=== PATIENT | male | born 1965 | race Caucasian/White ===

== ENCOUNTER 2016-09-04 09:18 | Day surgery (SDC) | payer BC ==
[~2016-09-04] VITALS: Ht 177.8 cm; Wt 104.0 kg
[2016-09-04] VITALS (11 sets, daily range): BP systolic 105–139; BP diastolic 59–79; PULSE 58–77; RESP 15–19; Ht 177.8 cm; Wt 104.0 kg
[~2016-09-04 09:18] MED LIST: CEFAZOLIN 1 GM INJ ONE; SEVOFLURANE 15 MIN ONE
[2016-09-04] MEDS ORDERED: SOD CHLORIDE 0.9% 1,000 ML IV SCH (09:30)
[2016-09-04] MEDS ORDERED: CEFAZOLIN 2 GM/50 ML (PMX) 50 ML IVPB ONE (09:30)
--- NOTE | 2016-09-04 10:11 | RADRPT ---
PROCEDURE: XR Chest AP portable CLINICAL INDICATION: Preop cholelithiasis TECHNIQUE: An AP portable radiograph of the chest was submitted. COMPARISON: None. FINDINGS: Support Hardware: None Cardiovascular: The cardiovascular silhouette appears unremarkable. Lung Hernandez: The lung hernandez appear clear with no nodule, alveolar infiltrate, or interstitial promi nence evident. Pleural Spaces: No pneumothorax or pleural effusion is identified. Osseous Structures: The osseous structures appear intact. Soft Tissues: The soft tissues appear unremarkable. IMPRESSION: Unremarkable portable chest. Physician Noemi Date Time Electronically viewed and signed by Physician Noemi on 09/04/2016 10:11 /
[2016-09-04] MEDS ORDERED: BUPIVACAINE 0.25% (MPF) 30 ML INJ ONE (11:03)
[2016-09-04] MEDS ORDERED: LIDOCAINE 2% (SDV) 5 ML INJ ONE (11:43)
[2016-09-04] MEDS ORDERED: PROPOFOL 20 ML ONE (11:43)
[2016-09-04] MEDS ORDERED: ROCURONIUM 50 MG INJ ONE (11:43)
[2016-09-04] MEDS ORDERED: MIDAZOLAM 1 MG/ML 2 ML INJ ONE (11:43)
[2016-09-04] MEDS ORDERED: SUCCINYLCHOLINE CHLORIDE 100 MG/5 ML SYG IV ONE (11:43)
[2016-09-04] MEDS ORDERED: FENTAnyl 50 MCG/ML VIAL ONE (11:44)
[2016-09-04] MEDS ORDERED: BUPIVACAINE 0.25% (MPF) 30 ML INJ INJ ONE (11:55)
[2016-09-04] MEDS ORDERED: FAMOTIDINE 20 MG INJ ONE (11:58)
[2016-09-04] MEDS ORDERED: ONDANSETRON 4 MG INJ ONE (11:58)
[2016-09-04] MEDS ORDERED: DEXAMETHASONE 4 MG/ML 1 ML INJ ONE (11:58)
[2016-09-04] MEDS ORDERED: EPHEDrine SULFATE 50 MG/5 ML SYG ONE (12:00)
[2016-09-04] MEDS ORDERED: GLYCOPYRROLATE 0.4 MG INJ ONE (12:01)
[2016-09-04] MEDS ORDERED: NEOSTIGMINE 3 MG/3 ML SYRINGE ONE (12:01)
[2016-09-04] MEDS ORDERED: HYDROmorphONE 2 MG/ML SYG ONE (12:02)
[2016-09-04] MEDS ORDERED: ONDANSETRON 4 MG INJ IV PRN (12:30)
[2016-09-04] MEDS ORDERED: HYDROmorphONE (0.2 MG/ML) 10ML SYG IV PRN ×3 (12:30)
[2016-09-04] MEDS ORDERED: FENTAnyl 50 MCG/ML VIAL IV PRN ×3 (12:30)
[2016-09-04] MEDS ORDERED: MEPERIDINE 25 MG INJ IV PRN (12:30)
[2016-09-04] MEDS ORDERED: DIPHENHYDRAMINE 50 MG INJ IV PRN (12:30)
[2016-09-04] MEDS ORDERED: PROCHLORPERAZINE 10 MG INJ IV PRN (12:30)
--- NOTE | 2016-09-04 12:51 | OPR ---
DATE OF OPERATION: 09/04/2016 INDICATION: This is a 51-year-old male with symptomatic gallstones. He requests surgical excision. Risks, alternatives, benefits, and personnel were discussed with the patient. The patient express ed understanding and consents to the operation. PREOPERATIVE DIAGNOSIS: Symptomatic gallstones. POSTOPERATIVE DIAGNOSIS: Symptomatic gallstones. OPERATION: Laparoscopic cholecystectomy. SURGEON: Asad Deleon MD SPECIMEN: Gallbladder. COMPLICATIONS: None. ANESTHESIA: General. PROCEDURE: The patient was taken to the OR and prepped and draped in the usual sterile fashion. Mayers rgical timeout was performed. IV antibiotics were given. Infraumbilical transverse incision is mad e with a 15 blade. Dissection cautery was carried down to the fascia which was divided with curved Shaver scissors. An 0 Vicryl U-stitch was placed to the fascia. Balloon Kavin trocar was introduced . Pneumoperitoneum was established. Midepigastric 12 mm optical trocar, right upper quadrant and r ight upper flank 5 mm optical trocars are placed under direct visualization. Upon initial inspectio n, there were some adhesions to the gallbladder. The cystic duct was identified. The critical view was established. The cystic duct and cystic artery were divided using a 35 mm Bonduel vascular sta pler. Additional clips were placed to reinforce and the gallbladder was taken off the gallbladder b ed. There was good hemostasis. Gallbladder was retrieved using EndoCatch bag. Ports were removed under direct visualization. The 0 Vicryl U-stitch was tied down. Skin was closed using skin staple s. Local anesthesia was injected. Dry dressings were applied. Dictated By: ASAD DELEON MD SB/DAYNA Conf#: [id number] DID#: [id number]
[2016-09-04] MEDS ORDERED: HYDROCODONE/APAP (5/325) TAB PO ONE (13:00)
--- NOTE | 2016-09-04 19:22 | RADRPT ---
Vent Rate: 51 bpm RR Interval: 0 msec RI Interval: 176 msec QRS Duration: 100 msec QT Interval: 422 msec QTC Interval: 388 msec P-R-T [place]: 61 - 15 - 47 degrees Sinus bradycardia Otherwise normal ECG Electronically Signed By: Ian Morales [id number]
== END 2016-09-04 14:45 | disposition home or self-care (01) ==
LOC: SDS 09:18
PROVIDERS: ATTEND Surgery
DX: K80.20 Calculus of gallbladder without cholecystitis without obstruction (principal); K82.4 Cholesterolosis of gallbladder; E66.9 Obesity, unspecified; Z68.33 Body mass index [BMI] 33.0-33.9, adult
CPT/HCPCS: 47562; 71010; 88304; 93005; J0330; J0690; J1100; J1170; J2250; J2405; J2710; J3010